=== PATIENT | female | born 1995 | race Caucasian/White ===

== ENCOUNTER 2021-03-06 12:24 | Emergency (ER) | payer BC, SELFPAY ==
--- NOTE | ~2021-03-06 | XR_ITS ---
EXAMINATION: XR chest 2V 03/06/2021 13:10 INDICATION: Left-sided chest pain PROCEDURE: 2 view chest COMPARISON: No prior studies for comparison. FINDINGS: The lungs are clear. The cardiomediastinal silhouette is within normal limits. There are no pleural effusions. There is no pneumothorax suspected. IMPRESSION: 1: NO ACUTE CARDIOPULMONARY DISEASE. Reviewed, dictated and finalized at [facility]. [facility] LANGUAGE PATHOLOGY ASSISTANT
--- NOTE | ~2021-03-06 | CT_ITS ---
EXAMINATION: CTA chest PE protocol DATE: 03/06/2021 15:25 INDICATION: Chest pain and shortness of breath for 4 days. Dizziness. TECHNIQUE: Computed tomography angiography (CTA) of the chest was performed with 100 mL Omnipaque-350 intravenous contrast timed to evaluate the pulmonary arteries. Coronal maximum intensity projection 3D-reconstructions were created by the technologist. Automated exposure control and iterative reconst ruction technique were employed. Exam dose: 856.43 mGy-cm total exam DLP. COMPARISON: 03/06/2021 2 view chest FINDINGS: There is moderate opacification of the pulmonary arteries and no evidence of pulmonary embo lism. No thoracic aortic aneurysm or dissection. No hilar or mediastinal mass lesion or lymphadenopathy. No pericardial or pleural effusion. No pulmonary infiltrate or consolidation or pulmonary mass lesion. Approximately by 18 mm probable right adrenal adenoma. Included skeletal structures are unremarkable. IMPRESSION: Negative examination; no evidence of pulmonary embolism Reviewed, dictated and finalized at [facility]. Reviewed, dictated and finalized at location [facility]. H MOSS OPERATOR
--- NOTE | 2021-03-06 12:25 | ECG_ITS ---
Measurements Intervals [place] Rate: 77 P: 27 SC: 113 QRS: 44 QRSD: 89 T: 8 QT: 342 QTc: 389 Interpretive Statements SINUS RHYTHM WITH SHORT SC INTERVAL BORDERLINE ECG Electronically Signed On 03-06-2021 12:51:16 OFFICE LEAD by Paulo Quiroga D.O.
[2021-03-06 12:27] VITALS: BP 147/94; PULSE 86; RESP 20; TEMP 36.4; O2SAT 100
[2021-03-06 12:48] LABS: Basophils Absolute Auto 0.1 K/mm3 (0.0-0.1); Basophils Percent Auto 0.5 % (0.2-1.2); Eosinophils Absolute Auto 0.1 K/mm3 (0-0.3); Eosinophils Percent Auto 0.9 % (0-4.4); Hematocrit 38.4 % (37.0-47.0); Hemoglobin 12.8 g/dL (12.0-15.0); Immature Granulocyte Absolute 0.04 K/mm3 (0.00-0.031); Immature Granulocyte Percent A 0.4 % (0-0.5); Lymphocytes Percent Auto 25.6 % (18.3-44.2); Mean Corpuscular HGB Conc 33.3 g/dl (32-36); Mean Corpuscular Hemoglobin 28.3 pg (26-34); Neutrophils Absolute Auto 6.7 K/mm3 (1.3-6.7); Neutrophils Percent Auto 63.6 % (45.5-73.1); Platelet Count Result 375 k/mm3 (150-375); Red Blood Count 4.52 M/mm3 (4.2-5.4); Red Cell Distribution Width 12.9 % (11.5-14.5); White Blood Count 10.5 K/mm3 (4.5-10.0)
[2021-03-06 12:55] LABS: Alanine Aminotransferase 30 U/L (4-35); Albumin Level 4.6 g/dL (3.5-5.1); Alkaline Phosphatase 82 U/L (38-126); Anion Gap 8 mmol/L (8-16); Aspartate Amino Transferase 26 U/L (14-36); Bilirubin,Total 0.3 mg/dL (0.2-1.3); Blood Urea Nitrogen 12 mg/dL (7-17); Calcium 9.6 mg/dL (8.4-10.2); Carbon Dioxide 24 mmol/L (22-30); Chloride 106 mmol/L (98-107); Estimated CRCL calculation 126 ml/min; Estimated Glomerular Filt Rate > 60; Glucose 103 mg/dL (65-110); Lipase 72 U/L (23-300); Sodium 138 mmol/L (137-145)
[2021-03-06 12:56] LABS: Prothrombin Time 12.8 Seconds (11.1-14.7)
[2021-03-06 12:57] LABS: Partial Thromboplastin Time 24.9 SECONDS (22.3-36.8)
[2021-03-06 13:07] LABS: Troponin I < 0.012 ng/mL (0.000-0.034)
[2021-03-06 13:58] VITALS: BP 154/106; PULSE 78; PULSE 80; RESP 18; O2SAT 98
[2021-03-06] MEDS: ASPIRIN 81 MG CHEWABLE TABLET 324 MG PO (14:17)
[2021-03-06 14:47] VITALS: BP 139/95; PULSE 78; RESP 20
--- NOTE | 2021-03-06 15:19 | PC.NURSE ---
pt to ct via w/c.
[2021-03-06] MEDS: KETOROLAC 15 MG/ML VIAL (*BKC) IV PUSH (15:47)
[2021-03-06 15:50] VITALS: BP 155/108; PULSE 78; RESP 18; O2SAT 98
[2021-03-06 16:18] LABS: Troponin I < 0.012 ng/mL (0.000-0.034)
--- NOTE | 2021-03-06 16:26 | ED.GENADULT ---
HPI - General Adult General Chief complaint: Chest Pain Stated complaint: chest pain Time Seen by Provider: 03/06/21 13:49 Source: patient Mode of arrival: ambulatory Limitations: no limitations History of Present Illness HPI narrative: Patient is a 25 yo female with CC of chest pain that worsens with cough and inspiration that began on . She states she was mild but worsened with work today when she was moving around. She states she was diagnosed with COVID 02/22 and only has dry cough and congestion left. She is a vaper. She denies shortness of breath. She denies syncope, palpitations, fever, chills. She denies history of DVT or PE. She denies calf pain. Related Data Allergies Allergy/AdvReac Type Severity Reaction Status Date / Time No Known Allergies Allergy Unverified 02/17/21 15:10 Review of Systems Review of Systems: CONSTITUTIONAL: Denies fever, chills, or sweats. EYES: Denies visual changes, redness, or discharge. ENT: Denies rhinorrhea, congestion, sore throat, or otalgia. CARDIOVASCULAR: Reports chest pain,Denies palpitations, or edema. RESPIRATORY: Reports cough and painful inspiration denies dyspnea. GASTROINTESTINAL: Denies abdominal pain, nausea, vomiting, or diarrhea. GENITOURINARY: Denies dysuria or hematuria. SKIN: Denies rash or itching. MUSCULOSKELETAL: Denies back pain, joint pain, or myalgia. NEUROLOGIC: Denies headache, numbness, dizziness, or weakness. PSYCHIATRIC: Denies anxiety or depression. Exam Narrative: GENERAL: Well-appearing, well-nourished, and in no acute distress. HEAD: Normocephalic, atraumatic. EYES: PERRLA and EOMI. CHEST: Clear to auscultation. No respiratory distress. No wheezes rales or rhonchi. Patient speaking in clear sentences without difficulty. Patient not hypoxic. 98-100% on RA. HEART: Regular rate and rhythm. No murmur heard. Normal peripheral pulses. EXTREMITIES: Normal range of motion. No edema. SKIN: Warm, dry, no rash. NEURO: No focal deficits. Alert and oriented x3. PSYCH: Normal mood and affect. Course Vital Signs Vital signs: Vital Signs Temperature 97.5 F L 03/06/21 12:27 Pulse Rate 86 03/06/21 12:27 Respiratory Rate 20 03/06/21 12:27 Blood Pressure 147/94 H 03/06/21 12:27 Pulse Oximetry 100 03/06/21 12:27 Temperature 97.5 F L 03/06/21 12:27 Pulse Rate 78 03/06/21 15:50 Respiratory Rate 18 03/06/21 15:50 Blood Pressure 155/108 H 03/06/21 15:50 Pulse Oximetry 98 03/06/21 15:50 Medical Decision Making MDM Narrative Medical decision making narrative: CTA negative for pneumonia or PE. Patient not showing signs of DVT. She is not hypoxic. Vitals stable. discussed follow up with [facility] and monitor bp. Discussed RTER Instructions. Patient instructed to stop vaping - was vaping. Vital Signs Vital Signs: Vital Signs Temperature 97.5 F L 03/06/21 12:27 Pulse Rate 86 03/06/21 12:27 Respiratory Rate 20 03/06/21 12:27 Blood Pressure 147/94 H 03/06/21 12:27 Pulse Oximetry 100 03/06/21 12:27 Temperature 97.5 F L 03/06/21 12:27 Pulse Rate 78 03/06/21 15:50 Respiratory Rate 18 03/06/21 15:50 Blood Pressure 155/108 H 03/06/21 15:50 Pulse Oximetry 98 03/06/21 15:50 Lab Data Result diagrams: 03/06/21 12:33 03/06/21 12:33 Labs: Lab Results 03/06/21 03/06/21 03/06/21 Range/Units 12:33 12:33 12:33 WBC 10.5 H (4.5-10.0) K/mm3 RBC 4.52 (4.2-5.4) M/mm3 Hgb 12.8 (12.0-15.0) g/dL Hct 38.4 (37.0-47.0) % MCV 85.0 (80-100) fl MCH 28.3 (26-34) pg MCHC 33.3 (32-36) g/dl RDW 12.9 (11.5-14.5) % Plt Count 375 (150-375) k/mm3 MPV 9.0 (7.4-10.4) fl Immature Gran % (Auto) 0.4 (0-0.5) % Neut % (Auto) 63.6 (45.5-73.1) % Lymph % (Auto) 25.6 (18.3-44.2) % [place] % (Auto) 9.0 H (2.6-8.5) % Eos % (Auto) 0.9 (0-4.4) % Baso % (Auto) 0.5 (0.2-1.2) % Lymph # (Auto) 2.70 (0.9-3.2) K/mm3 [place] # (Auto) 1
== END 2021-03-06 16:51 | disposition home or self-care (01) ==
PROVIDERS: Emergency Provider Emergency Medicine; PCP Physician Assistant
DX: R09.1 Pleurisy (principal); Z86.16 Personal history of COVID-19; F17.290 Nicotine dependence, other tobacco product, uncomplicated; R94.31 Abnormal electrocardiogram [ECG] [EKG]
CPT/HCPCS: 36415; 71046; 71275; 80053; 81025; 83690; 84484; 85025; 85610; 85730; 93005; 96374; 99284; A9270; J1885; Q9967

== ENCOUNTER 2021-03-18 12:19 | Outpatient (CLI) | payer BC, SELFPAY ==
[2021-03-18 13:10] LABS: Beta HCG Quantitative < 2.39 mIU/ML
== END 2021-03-18 12:20 | disposition home or self-care (01) ==
PROVIDERS: Visit Provider Obstetrics & Gynecology
DX: O03.1 Delayed or excessive hemorrhage following incomplete spontaneous abortion (principal)
CPT/HCPCS: 36415; 84702